=== PATIENT | male | born 1970 | race Two or more races ===

== ENCOUNTER → 2019-01-06 | Outpatient (CLI) | payer OTHER ==
[~2019-01-06] MED LIST: METHOCARBAMOL500 MG PO
== END | disposition home or self-care (01) ==
LOC: RAD 09:30
DX: G89.11 Acute pain due to trauma (principal)

== ENCOUNTER 2019-08-19 06:44 | Outpatient (CLI) | payer OTHER | END 2019-08-19 06:52 | disposition home or self-care (01) | LOC: LAB 06:44 | DX: Z12.5 Encounter for screening for malignant neoplasm of prostate (principal); Z13.220 Encounter for screening for lipoid disorders; Z11.3 Encounter for screening for infections with a predominantly sexual mode of transmission; Z13.89 Encounter for screening for other disorder ==

== ENCOUNTER 2020-09-15 08:20 | Outpatient (CLI) | payer OTHER | END 2020-09-15 08:31 | disposition home or self-care (01) | LOC: TOM 08:20 | PROVIDERS: ATTEND General Practice | DX: R07.89 Other chest pain (principal); F17.210 Nicotine dependence, cigarettes, uncomplicated; J31.0 Chronic rhinitis; K64.8 Other hemorrhoids; Z00.01 Encounter for general adult medical examination with abnormal findings; Z12.11 Encounter for screening for malignant neoplasm of colon; Z12.5 Encounter for screening for malignant neoplasm of prostate; Z12.2 Encounter for screening for malignant neoplasm of respiratory organs; Z13.228 Encounter for screening for other metabolic disorders; Z11.3 Encounter for screening for infections with a predominantly sexual mode of transmission; Z11.4 Encounter for screening for human immunodeficiency virus [HIV]; Z68.23 Body mass index [BMI] 23.0-23.9, adult ==

== ENCOUNTER 2021-04-14 07:09 | Outpatient (CLI) | payer OTHER | END 2021-04-14 07:22 | disposition home or self-care (01) | LOC: SONOGRAMA 07:09 → MAMO-SONO 09:15 | PROVIDERS: ATTEND General Practice | DX: R10.84 Generalized abdominal pain (principal); N50.819 Testicular pain, unspecified; N40.1 Benign prostatic hyperplasia with lower urinary tract symptoms ==

== ENCOUNTER 2021-07-28 07:16 | Outpatient (CLI) | payer OTHER | END 2021-07-28 07:26 | disposition home or self-care (01) | LOC: TOM 07:16 | PROVIDERS: ATTEND Internal Medicine Gastroenterology | DX: K40.90 Unilateral inguinal hernia, without obstruction or gangrene, not specified as recurrent (principal); Z12.11 Encounter for screening for malignant neoplasm of colon; R10.30 Lower abdominal pain, unspecified ==

== ENCOUNTER 2022-08-29 07:06 | Outpatient (CLI) | payer OTHER | END 2022-08-29 07:20 | disposition home or self-care (01) | LOC: SONOGRAMA 07:06 | PROVIDERS: ATTEND General Practice | DX: R10.9 Unspecified abdominal pain (principal); N28.1 Cyst of kidney, acquired ==

== ENCOUNTER 2022-08-29 08:45 | Outpatient (CLI) | payer OTHER | END 2022-08-29 08:48 | disposition home or self-care (01) | LOC: NUCLEAR 08:45 | PROVIDERS: ATTEND General Practice | DX: I83.812 Varicose veins of left lower extremity with pain (principal); I73.9 Peripheral vascular disease, unspecified; M79.606 Pain in leg, unspecified ==

== ENCOUNTER 2022-08-30 08:26 | Outpatient (CLI) | payer OTHER | END 2022-08-30 08:28 | disposition home or self-care (01) | LOC: NUCLEAR 08:26 | PROVIDERS: ATTEND General Practice | DX: I83.812 Varicose veins of left lower extremity with pain (principal); I73.9 Peripheral vascular disease, unspecified; M79.606 Pain in leg, unspecified ==

== ENCOUNTER 2023-01-28 12:05 | Outpatient (CLI) | payer OTHER | END 2023-01-28 12:31 | disposition home or self-care (01) | LOC: RAD 12:05 | PROVIDERS: ATTEND General Practice | DX: M54.59 Other low back pain (principal) ==

== ENCOUNTER 2023-03-13 07:38 | Emergency (ER) | payer OTHER ==
[~2023-03-13] VITALS: Ht 170.2 cm; Wt 62.6 kg
== END 2023-03-13 20:09 | disposition home or self-care (01) ==
LOC: ER
PROVIDERS: General Practice
DX: K52.9 Noninfective gastroenteritis and colitis, unspecified (principal); Z20.822 Contact with and (suspected) exposure to COVID-19; Z88.6 Allergy status to analgesic agent; Z88.0 Allergy status to penicillin
CPT/HCPCS: 36415; 96365; 96366; 99283; J0744; J3490

== ENCOUNTER 2023-05-22 10:53 | Outpatient (CLI) | payer OTHER | END 2023-05-22 11:06 | disposition home or self-care (01) | LOC: RAD 10:53 | DX: J01.90 Acute sinusitis, unspecified (principal); Z88.0 Allergy status to penicillin; Z88.6 Allergy status to analgesic agent ==

== ENCOUNTER 2023-08-19 07:04 | Outpatient (CLI) | payer OTHER | END 2023-08-19 07:11 | disposition home or self-care (01) | LOC: SONOGRAMA 07:04 | PROVIDERS: ATTEND General Practice | DX: R10.9 Unspecified abdominal pain (principal); R14.1 Gas pain; U09.9 Post COVID-19 condition, unspecified ==

== ENCOUNTER 2024-03-04 11:55 | Outpatient (CLI) | payer OTHER | END 2024-03-04 12:03 | disposition home or self-care (01) | LOC: SONOGRAMA 11:55 | PROVIDERS: ATTEND General Practice | DX: M79.671 Pain in right foot (principal); M72.2 Plantar fascial fibromatosis ==

== ENCOUNTER 2025-03-05 08:59 | Outpatient (CLI) | payer OTHER | END 2025-03-05 13:18 | disposition home or self-care (01) | LOC: RAD 08:59 | DX: M47.812 Spondylosis without myelopathy or radiculopathy, cervical region (principal) ==